=== PATIENT | female | born 1960 | race Caucasian/White ===

== ENCOUNTER 2017-09-28 07:27 | Emergency (ER) | payer OTHER ==
[~2017-09-28] VITALS: Ht 165.1 cm; Wt 65.8 kg
[~2017-09-28 07:27] MED LIST: BENTYL20 MG PO; FLEXERIL10 MG PO; MOBIC15 M1 PO; PERCOCET 325 MG1 TA2 PO; PROAIR HFA0.09 MG/Ac INH; ROBITUSSIN W/CO10 ML PO; TRAMADOL HCL50 M1 PO; VICODIN 300 MG-1 TAB PO; VICODIN5-300 PO; ZOFRAN ODT4 MG PO
--- NOTE | 2017-09-28 09:50 | ED CARDIAC/CP/PALPITATIONS ---
History of Present Illness General Chief Complaint: Chest Pain Stated Complaint: CHEST PAIN, BACK PAIN,SOB Source: patient Exam Limitations: no limitations Vital Signs & Intake/Output Vital Signs & Intake/Output Vital Signs Date Time Temp Pulse Resp B/P B/P Pulse O2 O2 Flow FiO2 Mean Ox Delivery Rate 09/28 1132 107/72 09/28 1131 97.4 72 18 96/66 100 09/28 1018 Room Air Room Air 09/28 0733 97.9 80 18 115/80 100 Room Air Allergies Coded Allergies: NO KNOWN ALLERGIES (05/07/15) Reconcile Medications Albuterol Sulfate (Proair Hfa) 0.09 MG/Actuation JAMES 2 PUFF INH Q4HR PRN DYSPNEA Meloxicam (Mobic) 15 MG TABLET 1 TAB PO DAILY PAIN Robitussin AC (Guaifenesin-Codeine Syrup) 10 ML UDC 10 ML PO Q6HR PRN COUGH Tramadol HCl 50 MG TABLET 1 TAB PO BIDP PRN PAIN Triage Note: 56F REPORTS SHE DEVELOPED MID THORACIC BACK PAIN 2 DAYS AGO, THEN YESTERDAY STARTED WITH SUBSTERNAL CONSTANT PAIN NON-RADIATING ASIDE FROM INTO BACK. DENIES SOB OR EXACERBATION W DEEP INSPIRATION. DENIES N/V. DENIES KNOWN INJURY OR TRAUMA. DENIES COUGH. NO ACUTE RESP DISTRESS OR WHELAN OBSERVED. +SMOKER <1PPD. DENIES CHANGE OR ABNORMAL SWELLING TO EXTREMITIES. REPORTS MULT PSYCHOSOCIAL STRESSORS. VSS Triage Nurses Notes Reviewed? yes HPI: 56 year old female with history of arthritis, chronic lower back pain, cervical myelopathy, presenting to the ED for chief complaint of chest pain. The chest pain started this morning, felt in the center and left side of her chest, around the epigastrium. This pain is associated with a pain in the center of her back that has been going on for approximately two days. In addition to this, she has experienced left-sided neck pain and shoulder pain alongside these complaints. The pain is constant, but intensifies at times and is affected minimally by changes in position. (Misael SMITH,Lev) Past History Travel History Traveled to [place] past 21 day No Medical History Any Pertinent Medical History? see below for history Neurological: NONE EENT: NONE Cardiovascular: NONE Respiratory: NONE Gastrointestinal: NONE Hepatic: NONE Renal: NONE Musculoskeletal: NONE Psychiatric: NONE Endocrine: NONE Blood Disorders: NONE Cancer(s): NONE TRAP SETTER/Reproductive: NONE Surgical History Surgical History: cholecystectomy Psychosocial History What is your primary language Bulgarian Tobacco Use: Current Daily Use Daily Tobacco Use Amount/Type: => 5 Cigarettes daily Family History Hx Contributory? No (Lev Douglas MD) Review of Systems Review of Systems Constitutional: Denies: chills, diaphoresis, fever, weakness. Respiratory: Denies: cough, sputum production. Cardiovascular: Reports: chest pain, palpitations. GI: Denies: abdominal pain, vomiting. (Lev Douglas MD) Review of Systems EENTM: Reports: no symptoms. Genitourinary: Reports: no symptoms. Musculoskeletal: Reports: no symptoms. Skin: Reports: no symptoms. Neurological/Psychological: Reports: no symptoms. Hematologic/Endocrine: Reports: no symptoms. Immunologic/Allergic: Reports: no symptoms. All Other Systems: Reviewed and Negative (Sarmad SMITH,Den Lantigua) Physical Exam Physical Exam General Appearance: well developed/nourished, no apparent distress, alert, awake Respiratory: normal breath sounds, chest non-tender Cardiovascular: regular rate/rhythm Gastrointestinal: soft, non-tender Back: no vertebral tenderness Core Measures ACS in differential dx? No CVA/TIA Diagnosis No Sepsis Present: No Sepsis Focused Exam Completed? No (Lev Douglas MD) Physical Exam Head: atraumatic Eyes: Bilateral: PERRL, EOMI. Ears, Nose, Throat: normal pharynx, normal ENT inspection, hearing grossly normal Neck: normal inspection, supple, full range of motion, NO JVD Extremities: normal inspection, normal capillary refill, normal range of motion, no edema Neurologic/Psych: no motor/sensory deficits, awake, alert, oriented x 3, normal gait, normal mood/affect Skin: intact, normal color, warm/dry (Sarmad SMITH,Den Lantigua) Progress Differential Diagnosis: aortic dissection, pancreatitis Plan of Care: Orders Procedure Date/time Status LIPASE 09/28 1012 Complete AMYLASE 09/28 1012 Complete TROPONIN LEVEL 09/28 0953 Complete COMPREHENSIVE METABOLIC PANEL 09/28 0953 Complete CBC WITHOUT DIFFERENTIAL 09/28 0953 Complete EKG 09/28 0729 Active Current Medications Sig/Sharyn Start time Last Medication Dose Stop Time Status Admin Ketorolac 60 MG ONCE ONE 09/28 1130 CAN Tromethamine 09/28 1131 (Toradol) Laboratory Tests 09/28/17 1012: Anion Gap 7, Estimated GFR > 60, BUN/Creatinine Ratio 30.0 H, Glucose 90, Calcium 9.5, Total Bilirubin 0.6, AST 32, ALT 50, Alkaline Phosphatase 41, Troponin I < 0.01, Total Protein 6.6, Albumin 4.1, Globulin 2.5, Albumin/ Globulin Ratio 1.6, Amylase 58, Lipase 189, CBC w Diff NO MAN DIFF REQ, RBC 4.47 , MCV 89.5, MCH 30.6, MCHC 34.2, RDW 13.7, MPV 8.6, Gran % 52.0, Lymphocytes % 36.9, Monocytes % 7.0, Eosinophils % 3.2, Basophils % 0.9, Absolute Granulocytes 2.8, Absolute Lymphocytes 2.0, Absolute Monocytes 0.4, Absolute Eosinophils 0.2, Absolute Basophils 0 09/28/17 1000: Amylase Cancelled, Lipase Cancelled Diagnostic Imaging: Viewed by Me: Radiology Read. Discussed w/RAD: Radiology Read. Initial ED EKG: normal axis, normal intervals, normal QRS complex (Misael SMITH,Lev) Departure Departure Disposition: HOME OR SELF CARE Condition: Stable Clinical Impression Primary Impression: Chest pain Qualifiers: Chest pain type: unspecified Qualified Code: R07.9 - Chest pain, unspecified Secondary Impressions: Back pain Qualifiers: Back pain location: thoracic back pain Chronicity: acute Back pain laterality: midline Qualified Code: M54.6 - Pain in thoracic spine Referrals: Craig SMITH,Den Simpson (PCP/Family) Additional Instructions: Please note that there might be incidental findings on thisevaluation unrelated to your current emergency department visit. Please notify your primary care doctor about this emergency department visit in order to obtain and review all of the testing performed so that these incidental findings can be monitored as needed. If you had an x-ray performed, please understand some fractures or other findings may not be seen on the initial set of x-rays. Her symptoms persist you may need a repeat set of x-rays to check for such a fracture. If you had a laceration evaluated, please understand that foreign body such as glass or wood may represent visible to the naked eye plain x-rays. If it becomes red, swollen, increasingly more painful or if there is any drainage from the wound, please be reevaluated by a physician for the possibility of a retained foreign body. If you're unable to follow-up as outlined in the discharge instructions, please return to the emergency department. Departure Forms: Customer Survey General Discharge Information (Misael SMITH,Lev) Resident Co-Sign Statement Statement: ED Attending supervision documentation- [X] I saw and evaluated the patient. I have also reviewed all the pertinent lab results and diagnostic results. I agree with the findings and the plan of care as documented in the Resident's documentation. [X] I have reviewed the ED Record and agree with the Resident's documentation. [] Additions or exceptions (if any) to the Resident's note and plan are summarized below: [] (Sarmad SMITH,Den Lantigua) Critical Care Note Critical Care Note Critical Care Time: non-applicable (Misael SMITH,Lev)
--- NOTE | 2017-09-28 10:22 | RADIOLOGY REPORT ---
EXAMINATION: XR CHEST CLINICAL INFORMATION: Chest pain radiating to back. COMPARISON: 01/10/2017. TECHNIQUE: 2 views of the chest were obtained. FINDINGS: The cardiomediastinal silhouette is stable when compared to prior. No thoracic aortic aneurysm is demonstrated. Lungs well expanded and clear. No effusion or pneumothorax. Degenerative changes in the spine. IMPRESSION: Stable chest x-ray. No acute cardiopulmonary findings.
[2017-09-28 10:34] LABS: ABSOLUTE BASOPHIL COUNT 0 /CUMM (0.0-0.2); ABSOLUTE EOSINOPHIL COUNT 0.2 /CUMM (0.0-0.7); ABSOLUTE GRANULOCYTE CT 2.8 /CUMM (1.4-6.5); ABSOLUTE MONOCYTE COUNT 0.4 /CUMM (0.10-0.60); BASOPHIL % 0.9 % (0.0-2.0); EOSINOPHIL % 3.2 % (0-5); MEAN CORPUSCULAR HGB 30.6 PG (27.0-31.0); MEAN CORPUSCULAR HGB CONC 34.2 G/DL (33.0-37.0); MEAN CORPUSCULAR VOLUME 89.5 FL (81.0-99.0); MEAN PLATELET VOLUME 8.6 FL (7.4-10.4); PLATELET COUNT 196 /CUMM (130-400); RBC DISTRIBUTION WIDTH 13.7 % (11.5-14.5); RED BLOOD CELL CT 4.47 /CUMM (4.20-5.40); WHITE BLOOD CELL COUNT 5.4 /CUMM (4.8-10.8)
[2017-09-28 11:32] VITALS: BP 107/72
--- NOTE | 2017-09-28 13:25 | CT SCAN REPORT ---
EXAMINATION: CTA CHEST CLINICAL INFORMATION: Chest pain radiating to back and left neck with question of dissection. COMPARISON: CT angiogram chest 06/16/2013. TECHNIQUE: Volume acquisition CT was performed both before and after IV contrast. The contrast enhanced portion exam was performed during administration of 95 mL of Optiray 370. Additional 2-D coronal and sagittal reformatted images and axial 3-D maximum intensity projection MIP images are generated on the CT workstation. FINDINGS: VASCULAR: The thoracic aorta appears normal without evidence of aneurysm or dissection. A small ductus bump is noted. A three-vessel arch is present with widely patent great vessels. A tricuspid aortic valve is present. No significant coronary calcifications are present. The visualized portion of the abdominal aorta is unremarkable. The celiac and SMA are patent. 2 renal arteries are noted on the right with a single on the left which are patent. Although not performed to evaluate the pulmonary arteries, the visualized pulmonary arteries appear normal without evidence of emboli. Pulmonary veins appear normal. There is probably a retroaortic left renal vein present. NON-VASCULAR: Multiple cysts are noted in the right lobe of the thyroid which were present previously. A number of calcified granulomas are noted scattered throughout the lungs. These were present previously. A 4.5 mm nodule along the major fissure on the right probably represents an intrapulmonary lymph node (series 4 image [id number]). This was present in 2013 and may be minimally larger. Previously detected right middle lobe pneumonia has cleared. No pleural effusions are seen. No mediastinal or hilar lymphadenopathy is seen. The chest wall is unremarkable. The visualized structures of the upper abdomen appear normal. Mild degenerative changes are present in the spine. IMPRESSION: No aortic dissection, hematoma or aneurysm is seen. A cause for the patient's chest pain radiating to the left neck and back has not been found. Evidence of previous granulomatous disease with calcified pulmonary granulomas.
== END 2017-09-28 14:40 ==
LOC: ERH 07:27
PROVIDERS: Student in an Organized Health Care Education/Training Program
DX: R07.89 Other chest pain (principal)
CPT/HCPCS: 71046; 93005; 93010; 96374; J1885